=== PATIENT | male | born 1985 | race Caucasian/White ===

== ENCOUNTER 2021-04-02 15:21 | Emergency (ER) | payer OTHER ==
[~2021-04-02] VITALS: Ht 180.3 cm; Wt 68.0 kg
--- NOTE | 2021-04-02 15:37 | NUR ---
TO CHAIR 2, C/O RASHES ON THE CORNER OF LEFT EYE AND LEFT SIDE OF LIP, AWAITING MD MARTINEZ
[2021-04-02 16:01] VITALS: BP 120/64
[2021-04-02] MEDS ORDERED: DOXY100T2 PO (16:14)
[2021-04-02] MEDS ORDERED: CLIN300C12 PO (16:14)
== END 2021-04-02 16:23 | disposition home or self-care (01) ==
LOC: ER 15:29
DX: L03.213 Periorbital cellulitis (principal); Z88.5 Allergy status to narcotic agent